=== PATIENT | male | born 1985 | race Caucasian/White ===

== ENCOUNTER 2017-09-16 20:32 | Emergency (ER) | payer OTHER ==
[~2017-09-16] VITALS: Ht 182.9 cm; Wt 77.1 kg
[2017-09-16 20:34] VITALS: BP 149/100
--- NOTE | 2017-09-16 20:44 | NUR ---
PT BIBA TO ER BED 11
--- NOTE | 2017-09-16 20:44 | NUR ---
BIB EMS. PATIENT PRESENTS TO ED WITH RLQ ABD PAIN 10/10 X1 HR. PT STATES NO INJURY AND ONSET OF PAIN WAS UNEXPECTED AND UNKNOWN REASON WHY. PT HAS NAUSEA WITHOUT VOMITNIG. DENIES DIARRHEA; SKIN IS PINK/WARM/DRY; AAOX4 WITH EVEN AND STEADY GAIT; LUNGS CLEAR BL; HR EVEN AND REGULAR; PT DENIES ANY FEVER, CP, SOB, OR COUGH AT THIS TIME; PATIENT STATES PAIN OF 10/10 AT THIS TIME; VSS; PATIENT POSITIONED FOR COMFORT; HOB ELEVATED; BEDRAILS UP X2; BED DOWN. ER MD MADE AWARE OF PT STATUS. CONTINUE TO MONITOR.
[2017-09-16 21:53] LABS: BASOPHILS % (AUTO) 0.2 % (0.0-2.0); EOSINOPHILS % (AUTO) 0.3 % (0.0-4.0); HEMATOCRIT 48.4 % (36-52); LYMPHOCYTES # (AUTO) 1.2 K/uL (2.0-11.5); LYMPHOCYTES % (AUTO) 7.2 % (20.5-51.1); MEAN CORPUSCULAR HEMOGLOBIN 30 pg (27-31); MEAN CORPUSCULAR HGB CONC 33 g/dL (33-37); MEAN CORPUSCULAR VOLUME 91.9 fL (80-94); MONOCYTES # (AUTO) 0.7 K/uL (0.8-1.0); MONOCYTES % (AUTO) 4.3 % (1.7-9.3); PLATELET COUNT (AUTO) 241 K/uL (140-450); RED BLOOD CELL COUNT(AUTO) 5.27 MIL/uL (4.20-6.10); RED CELL DISTRIBUTION WIDTH 13.1 % (11.6-13.7)
--- NOTE | 2017-09-16 22:02 | NUR ---
PERFORMED STRAIGHT CATH. URINE COLLECTED. PT TOLERATED PROCEDURE WELL.
[2017-09-16] MEDS ORDERED: KETOROLAC 60 MG/2 ML VIAL IM ONE (22:05)
[2017-09-16 22:12] LABS: ANION GAP 12.9 (8-16); CARBON DIOXIDE 26.6 mmol/L (21-32); CREATININE 1.2 mg/dL (0.7-1.3); POTASSIUM 3.5 mmol/L (3.5-5.1)
[2017-09-16 22:15] LABS: ALBUMIN 4.3 g/dL (3.4-5.0); TOTAL BILIRUBIN 1.2 mg/dL (0.0-1.0)
--- NOTE | 2017-09-16 22:16 | NUR ---
pt taken to CT
[2017-09-16 22:21] LABS: APPEARANCE,URINE HAZY (CLEAR); BILIRUBIN,URINE NEGATIVE (NEGATIVE); BLOOD, URINE 3+ (NEGATIVE); COLOR,URINE YELLOW (YELLOW); LEUKOCYTE ESTERASE ,URINE NEGATIVE (NEGATIVE); NITRITE, URINE NEGATIVE (NEGATIVE); UGLUCOSE NEGATIVE (NEGATIVE)
--- NOTE | 2017-09-16 22:25 | NUR ---
PT BACK FROM CT VIA BED AAOX4
[2017-09-16 22:37] LABS: WBC,URINE 0-5 (RARE) /HPF (0-5)
[2017-09-16 22:38] LABS: RBC,URINE 50-80 /HPF (0-5)
== END 2017-09-16 23:32 | disposition home or self-care (01) ==
LOC: MED 20:32
DX: R10.9 Unspecified abdominal pain (principal); Z87.442 Personal history of urinary calculi
CPT/HCPCS: 36415; 74176; 80053; 81001; 85025; 93005; 96374; 99285; J1885

== ENCOUNTER 2018-07-26 03:05 | Emergency (ER) | payer OTHER ==
[~2018-07-26] VITALS: Ht 182.9 cm; Wt 81.6 kg
[2018-07-26 03:05] VITALS: BP 155/90
--- NOTE | 2018-07-26 03:09 | NUR ---
PT BIB WHEELCHAIR TO ER BED 8
--- NOTE | 2018-07-26 03:14 | NUR ---
33 YO M BIB SELF PRESENTS TO ED C/O OF RIGHT SIDE MIDDLE BACK PAIN THAT RADIATES DOWN INTO GROIN THAT STARTED 40 MINS AGO. PT IS GROANING, GUARDING AND REPORTS 9/10 SEVERE PAIN. PT STATES HE HAS BEEN TREATED FOR KIDNEY STONES IN THE PAST. PMH-- DENIES RX-- DENIES SKIN IS PINK DRY WARM. PT APPEARS TO BE IN PAIN BUT IS COOPERATIVE. BREATHING EVEN, UNLABORED. PT POSITIONED FOR COMFORT. HOB FLAT, PER PT PREFERENCE. SIDE RAIL UP X1. BED IN LOWEST POSITION.
[2018-07-26] MEDS ORDERED: NACL 0.9% 1,000 ML IV ONE (03:17)
[2018-07-26] MEDS ORDERED: ONDANSETRON 4 MG/2 ML VIAL IVP ONE (03:20)
[2018-07-26] MEDS ORDERED: MORPHINE SULFATE 4 MG/ML SYR IVP ONE (03:20)
[2018-07-26] MEDS ORDERED: KETOROLAC 30 MG/ML VIAL IVP ONE ×2 (03:20→04:35)
[2018-07-26 03:47] LABS: ANION GAP 12.8 (8-16); CARBON DIOXIDE 28.1 mmol/L (21-32); CREATININE 1.2 mg/dL (0.7-1.3); POTASSIUM 3.9 mmol/L (3.5-5.1)
[2018-07-26 03:52] LABS: TOTAL BILIRUBIN 0.7 mg/dL (0.0-1.0)
[2018-07-26 04:05] LABS: BASOPHILS % (AUTO) 0.4 % (0.0-2.0); EOSINOPHILS # (AUTO) 0.1 K/uL (0-0.4); EOSINOPHILS % (AUTO) 0.8 % (0.0-4.0); HEMATOCRIT 44.9 % (36-52); HEMOGLOBIN 15.4 g/dL (12.0-18.0); LYMPHOCYTES # (AUTO) 2.3 K/uL (2.0-11.5); LYMPHOCYTES % (AUTO) 29.5 % (20.5-51.1); MEAN CORPUSCULAR HEMOGLOBIN 31 pg (27-31); MEAN CORPUSCULAR HGB CONC 34 g/dL (33-37); MEAN CORPUSCULAR VOLUME 90.7 fL (80-94); MONOCYTES # (AUTO) 0.6 K/uL (0.8-1.0); MONOCYTES % (AUTO) 8.2 % (1.7-9.3); NEUTROPHILS # (AUTO) 4.8 K/uL (1.8-7.7); NEUTROPHILS % (AUTO) 61.1 % (42.2-75.2); PLATELET COUNT (AUTO) 246 K/uL (140-450); RED BLOOD CELL COUNT(AUTO) 4.94 MIL/uL (4.20-6.10); WHITE BLOOD COUNT (AUTO) 7.8 K/uL (4.8-10.8)
[2018-07-26 04:14] LABS: APPEARANCE,URINE SL CLOUDY (CLEAR); BILIRUBIN,URINE NEGATIVE (NEGATIVE); BLOOD, URINE 3+ (NEGATIVE); COLOR,URINE YELLOW (YELLOW); LEUKOCYTE ESTERASE ,URINE NEGATIVE (NEGATIVE); NITRITE, URINE NEGATIVE (NEGATIVE); UGLUCOSE NEGATIVE (NEGATIVE)
[2018-07-26 04:19] LABS: RBC,URINE TOO NUMEROUS TO COUN /HPF (0-5); WBC,URINE NONE SEEN /HPF (0-5)
[2018-07-26] MEDS ORDERED: HYDROcodone/APAP 5/325 MG 1 TAB TAB PO ONE (04:35)
[2018-07-26 05:17] VITALS: BP 143/97
--- NOTE | 2018-07-26 05:17 | NUR ---
Patient discharged with v/s stable. Written and verbal after care instructions given and explained. Patient alert, oriented and verbalized understanding of instructions. Ambulatory with steady gait. All questions addressed prior to discharge. ID band removed. Patient advised to follow up with PMD. Rx of [place], Naprosyn, Zofran given. Patient educated on indication of medication including possible reaction and side effects. Opportunity to ask questions provided and answered.
== END 2018-07-26 05:17 | disposition home or self-care (01) ==
LOC: MED 03:05
DX: N20.1 Calculus of ureter (principal); Z87.442 Personal history of urinary calculi
CPT/HCPCS: 36415; 80053; 81001; 83690; 85025; 96374; 96375; 96376; 99283; J1885; J2270; J2405; J7030

== ENCOUNTER 2018-11-27 22:58 | Emergency (ER) | payer OTHER ==
[~2018-11-27] VITALS: Ht 182.9 cm; Wt 83.9 kg
[2018-11-27 23:01] VITALS: BP 130/106
--- NOTE | 2018-11-27 23:04 | NUR ---
PT AMBULATED TO BED 9.
--- NOTE | 2018-11-27 23:08 | NUR ---
PT CAME TO ER C/O OF LEFT EYE SWELLING. 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 TODAY PT WOKE UP AND LEFT EYE IS SWOLLEN, RED WITH YELLOW DRAINAGE. PT PAIN LEVEL 5/10, PRESSURE PAIN AND AREA IS TENDER TO TOUCH. NKA. MED HX: KIDNEY STONES. SAFETY MEASURES IN PLACE. WAITING FOR ERMD TO EVALUATE PT.
--- NOTE | 2018-11-27 23:12 | NUR ---
ERMD AT BEDSIDE
--- NOTE | 2018-11-27 23:24 | NUR ---
Patient discharged with v/s stable. Written and verbal after care instructions given and explained. Patient alert, oriented and verbalized understanding of instructions. Ambulatory with steady gait. All questions addressed prior to discharge. ID band removed. Patient advised to follow up with PMD. Rx of MOTRIN AND KEFLEX was given. Patient educated on indication of medication including possible reaction and side effects. Opportunity to ask questions provided and answered.
[2018-11-27 23:25] VITALS: BP 130/106
== END 2018-11-27 23:24 | disposition home or self-care (01) ==
LOC: MED 22:58
DX: L03.213 Periorbital cellulitis (principal); F17.200 Nicotine dependence, unspecified, uncomplicated
CPT/HCPCS: 99283

== ENCOUNTER 2019-03-18 17:45 | Emergency (ER) | payer OTHER ==
[~2019-03-18] VITALS: Ht 182.9 cm; Wt 86.2 kg
[2019-03-18 18:06] VITALS: BP 140/92
--- NOTE | 2019-03-18 18:09 | NUR ---
Patient ambulated to bed 6 with family. RN evaluating patient at bedside.
--- NOTE | 2019-03-18 18:10 | NUR ---
RECIVED PATIENT FROM TRIAGE TO BED 6 WITH C/O LEFT NECK AND SINUS PAIN, COUGHING X8 DAYS W/ BODY ACHE. PENDING ED MD KELLEY
--- NOTE | 2019-03-18 18:20 | NUR ---
CONCEPCIÓN RICHARDS IN ROOM
[2019-03-18] MEDS ORDERED: DEXAMETHASONE 10 MG/ML VIAL PO ONE (18:30)
[2019-03-18] MEDS ORDERED: KETOROLAC 30 MG/ML VIAL IM ONE (18:30)
[2019-03-18 19:20] VITALS: BP 127/84
--- NOTE | 2019-03-18 19:25 | NUR ---
Patient discharged with v/s stable.RX X4 GIVEN WITH Written and verbal after care instructions given and explained.Patient verbalized understanding. Ambulatory with steady gait. All questions addressed prior to discharge. Advised to follow up with PMD.
== END 2019-03-18 19:25 | disposition home or self-care (01) ==
LOC: MED 17:45
DX: J32.9 Chronic sinusitis, unspecified (principal)
CPT/HCPCS: 96372; 99283; J1100; J1885

== ENCOUNTER 2019-05-05 18:46 | Inpatient (IN) | payer OTHER ==
[~2019-05-05] VITALS: Ht 182.9 cm; Wt 81.2 kg
[2019-05-05 19:12] VITALS: BP 145/99
--- NOTE | 2019-05-05 19:16 | NUR ---
WAIT AT LOBBY.
--- NOTE | 2019-05-05 20:11 | NUR ---
pt ambulated to chair A
[2019-05-05] MEDS ORDERED: NACL 0.9% 1,000 ML IV ONE (20:30)
--- NOTE | 2019-05-05 20:53 | NUR ---
PT MOVED TO BED 9
[2019-05-05] MEDS ORDERED: MORPHINE SULFATE 4 MG/ML SYR IVP ONE (21:30)
--- NOTE | 2019-05-05 21:48 | NUR ---
33 Y/O MALE PRESENTS TO ED, C/O ABDOMINAL PAIN THAT STARTED YESTERDAY. PT STATES PAIN IS 10/10, RADIATES TO LOWER BACK. PT C/O NAUSEA AND VOMITING. BS ACTIVE X4 QUADRANTS. PT HAS HX OF KIDNEY STONES. ABDOMEN SOFT AND NONTENDER. PT DENIES CHEST PAIN. PT VSS. ERMD AWARE. WILL CONTINUE TO MONITOR.
[2019-05-05 21:54] LABS: HEMATOCRIT 49.6 % (36-52); HEMOGLOBIN 16.6 g/dL (12.0-18.0); MEAN CORPUSCULAR HEMOGLOBIN 31 pg (27-31); MEAN CORPUSCULAR HGB CONC 33 g/dL (33-37); MEAN CORPUSCULAR VOLUME 93.6 fL (80-94); PLATELET COUNT (AUTO) 262 K/uL (140-450); RED CELL DISTRIBUTION WIDTH 13.7 % (11.6-13.7); WHITE BLOOD COUNT (AUTO) 14.7 K/uL (4.8-10.8)
[2019-05-05 22:28] LABS: APPEARANCE,URINE SL CLOUDY (CLEAR); BILIRUBIN,URINE NEGATIVE (NEGATIVE); BLOOD, URINE TRACE-I (NEGATIVE); COLOR,URINE YELLOW (YELLOW); LEUKOCYTE ESTERASE ,URINE NEGATIVE (NEGATIVE); NITRITE, URINE NEGATIVE (NEGATIVE); UGLUCOSE NEGATIVE (NEGATIVE)
[2019-05-05 22:32] LABS: BARBITURATE, URINE NEG. ng/ml (NEG <=200); BENZODIAZEPINE, URINE NEG. ng/mL (NEG <=200); CANNABINOID, URINE POS. ng/mL (NEG <=50); COCAINE, URINE NEG. ng/mL (NEG <=300); OPIATE, URINE NEG. ng/mL (NEG <=2000); PHENCYCLIDINE SCREEN,URINE NEG. ng/mL (NEG <=25)
[2019-05-05 22:32] LABS: ALBUMIN 3.9 g/dL (3.4-5.0); ANION GAP 13.7 (8-16); CARBON DIOXIDE 29.6 mmol/L (21-32); CREATININE 1.1 mg/dL (0.7-1.3); POTASSIUM 4.3 mmol/L (3.5-5.1); PROTHROMBIN TIME 9.8 secs (10.8-13.4); TOTAL BILIRUBIN 1.5 mg/dL (0.0-1.0)
[2019-05-05 23:04] LABS: LYMPHOCYTES % (MANUAL) 6 % (20-46); MONOCYTES % (MANUAL) 5 % (5-12)
--- NOTE | 2019-05-05 23:12 | NUR ---
PT RESTING IN BED, EYES CLOSED. AROUSABLE TO NAME. DENIES PAIN AT THIS TIME. PT REMAINS ON MONITOR. VSS. WILL CONTINUE TO MONITOR.
[2019-05-05 23:49] LABS: WBC,URINE 0-5 /HPF (0-5)
--- NOTE | 2019-05-06 00:06 | NUR ---
Patient will be admitted to care of DR GALEANA. Admited to [facility]. Will go to room 105B. Belongings list completed. Report to CAESAR FARFAN.
--- NOTE | 2019-05-06 00:16 | NUR ---
RECEIVED PT FROM ER, PT WAS BROUGHT IN BY W/C TO ROOM 105 AND HE AMBULATED TO BED B. PT IS AOX4, WITH SKIN INTACT HE DENIES PAIN AT THIS TIME V/S FOLLOWS: T 97.4 P 108 R 20 B/P 141/102 02 100% ON ROOM AIR. MRSA SWAB DONE.
[2019-05-06 00:30] VITALS: BP 141/102
[2019-05-06] MEDS ORDERED: ACETAMINOPHEN 325 MG TAB PO PRN (00:30)
[2019-05-06] MEDS ORDERED: LORazepam 2 MG/ML VIAL IM/IVP PRN (00:30)
[2019-05-06] MEDS ORDERED: DOCUSATE SODIUM 100 MG GELCAP PO PRN (00:30)
[2019-05-06] MEDS ORDERED: HYDROcodone/APAP 5/325 MG 1 TAB TAB PO PRN (00:30)
[2019-05-06] MEDS ORDERED: ONDANSETRON 4 MG/2 ML VIAL IM/IVP PRN (00:30)
[2019-05-06] MEDS ORDERED: ZOLPIDEM 5 MG TAB PO PRN (00:30)
--- NOTE | 2019-05-06 01:00 | NUR ---
D5N/S HUNG AND RUNNING ORDERED. IV SITE ON LEFT AC INTACT AND ASYMPTOMATIC. UNIVERSAL FALLS PRECAUTIONS IN PLACE.
[2019-05-06 01:37] LABS: MAGNESIUM 2.1 mg/dL (1.8-2.4); PHOSPHORUS 3.4 mg/dL (2.5-4.9); THYROID STIMULATING HORMONE 1.17 uIU/mL (0.34-3.74)
[2019-05-06] MEDS: DEXT 5% /NACL 0.9% 1,000 ML IV SCH ×2 (01:52→13:00)
[2019-05-06] MEDS: MORPHINE SULFATE 2 MG/ML SYR IVP PRN ×3 (01:57→21:17)
--- NOTE | 2019-05-06 02:00 | NUR ---
PT C/O OF SEVERE PAIN IN ABDOMEN 10/17, HE WAS GIVEN IVP MORPHINE. WILL MONITOR PAIN EFFECT.
--- NOTE | 2019-05-06 07:00 | NUR ---
RECEIVED REPORT FROM ENVIRONMENTAL SERVICE AIDE RN. PATIENT IS FULL CODE, NKA. PATIENT AMBULATES, AAOX4, SKIN IS INTACT. LBM 05/05 PRIOR TO ADMISSION. PATIENT HAS A CONSULT WITH DR WOODS. CELESTINA 1ST DOSE WILL BE AT 0900. PATIENT IS CURRENTLY SLEEPING, VISIBLE CHEST RISE AND FALL. WILL REVIEW AND CONTINUE WITH PLAN OF CARE FOR THE DAY.
[2019-05-06 07:28] LABS: CHOL/HDL RATIO 2.3 (1-4.5)
[2019-05-06 08:00] VITALS: BP 135/95
[2019-05-06] MEDS: PANTOPRAZOLE 40 MG INJ VIAL IVP SCH (08:19)
--- NOTE | 2019-05-06 08:24 | NUR ---
ADMINISTERED MORNING MEDICATION. ADMINISTERED MORPHINE FOR PAIN 11/17. WILL RE-ASSESS PAIN LEVEL. PATIENT SIGNED CONSENT FOR LAP APPY. CONSENT PLACED IN HARD CHART.
[2019-05-06] MEDS: LEVOFLOXACIN 750 MG/D5W PREMIX 150 ML IV SCH (08:29)
--- NOTE | 2019-05-06 09:21 | NUR ---
PATIENT HAS BEEN SCREENED AND CATEGORIZED MODERATE NUTRITION RISK. PATIENT WILL BE SEEN WITHIN 3-5 DAYS OF ADMISSION. 05/08/19 05/10/[address]
--- NOTE | 2019-05-06 10:41 | NUR ---
COMPLETED PRE-OP CHECKLIST. INSTRUCTED PATIENT TO TAKE OFF JEANS AND WEAR GOWN ONLY PRIOR TO SURGERY. PATIENT VERBALIZED UNDERSTANDING.
--- NOTE | 2019-05-06 12:00 | NUR ---
PATIENT IS OFF THE FLOOR AND IS GOING TO OR FOR LAP APPY.
[2019-05-06] MEDS: LIDOCAINE 1% 500 MG/50 ML VIAL ONE ×2 (12:23→14:29)
[2019-05-06] MEDS: BUPIVACAINE-MPF/EPI 0.25% 30 ML VIAL INJ ONE ×2 (12:23→14:28)
[2019-05-06] MEDS ORDERED: MIDAZOLAM 2 MG/2 ML VIAL ONE (12:30)
[2019-05-06] MEDS ORDERED: SUCCINYLCHOLINE CHLORIDE 200 MG/10 ML VIAL IVP ONE (12:30)
[2019-05-06] MEDS ORDERED: PROPOFOL 200 MG/20 ML VIAL IV ONE (12:30)
[2019-05-06] MEDS ORDERED: ONDANSETRON 4 MG/2 ML VIAL ONE (12:30)
[2019-05-06] MEDS ORDERED: fentaNYL 0.05 MG/ML VIAL ONE (12:30)
[2019-05-06] MEDS ORDERED: SEVOFLURANE 250 ML BTL INH ONE (12:30)
[2019-05-06] MEDS ORDERED: DEXAMETHASONE 4 MG/ML VIAL ONE (12:30)
[2019-05-06] MEDS ORDERED: ROCURONIUM 50 MG/5 ML VIAL IV ONE (12:30)
[2019-05-06] MEDS: metroNIDAZOLE 500 MG/NS PREMIX 100 ML IV SCH ×2 (13:00→21:09)
[2019-05-06] MEDS ORDERED: MAGNESIUM HYDROXIDE 2400 MG/30 ML UDC PO SCH (14:00)
--- NOTE | 2019-05-06 14:10 | NUR ---
PATIENT IS BACK ON UNIT FROM OR. PATIENT IS RESTING QUIETLY, VISIBLE CHEST RISE AND FALL, NO DISTRESS NOTED. POST OP VITAL SIGNS WNL. WILL MONITOR VS Q15 MIN
--- NOTE | 2019-05-06 15:09 | NUR ---
FAMILY MEMBERS AT BEDSIDE. PATIENT IS DOING WELL. VITAL SIGNS ARE STABLE. NO COMPLAINTS AT THIS TIME.
[2019-05-06 16:00] VITALS: BP 134/99
--- NOTE | 2019-05-06 16:54 | NUR ---
DISCHARGE PLANNING: POST STABILIZATION FORM FAXED TO [facility] [phone].
--- NOTE | 2019-05-06 19:10 | NUR ---
RECEIVED REPORT FROM [facility] RN DAYSHIFT NURSE AT BEDSIDE FOR CONTINUITY OF CARE, PT IN STABLE CONDITION.
--- NOTE | 2019-05-06 20:00 | NUR ---
PT IN BED AOX4 SKIN INTACT EXCEPT FOR 3 SURGICAL WOUNDS ON ABDOMEN. WOUNDS CLOSED WITH DERMABOND, THEY ARE INTACT, CATALYST SUPERVISOR WITH NO SIGN OF DRAINAGE. IV SITE ON LEFT AC INTACT AND ASYMPTOMATIC V/S FOLLOWS: T 98.3 P 109 R 18 B/P 135/90 02 98% ON ROOM AIR. ALL UNIVERSAL FALLS PRECAUTIONS IN PLACE .
--- NOTE | 2019-05-06 20:24 | NUR ---
GAVE REPORT TO KHADRA MAYNARDSECURITY GUARDS DISPATCHER NURSE DUE TO CHANGE OF ASSIGNMENT.
--- NOTE | 2019-05-06 21:00 | NUR ---
RECEIVED REPORT OF PT IN STABLE CONDITION.IVF INFUSING WELL.CALL LIGHT IN REACH.WILL CONTINUE MONITORING.
--- NOTE | 2019-05-06 23:53 | NUR ---
PT WANTED TO DC.TALKED W/DR [place].SHE TALKED TO PT TO STAY ONE NIGHT AFTER SURGERY, PT ACCEPTED.PAIN MED GIVEN EARLIER .HAS NO C/O PAIN NOW.CONDITION STABLE.
[2019-05-07] VITALS: BP 121/80
[2019-05-07] MEDS: metroNIDAZOLE 500 MG/NS PREMIX 100 ML IV SCH (05:05)
[2019-05-07] MEDS: DEXT 5% /NACL 0.9% 1,000 ML IV SCH (05:05)
--- NOTE | 2019-05-07 06:52 | NUR ---
SLEPT WELL.NO C/O AFTER I GAVE PAIN MED AT 2116.IVF IS IN PROGRESS.NO DISTRESS NOTED NOW.POSSIBLE DISCHARGE TODAY.
--- NOTE | 2019-05-07 07:10 | NUR ---
RECEIVED REPORT FROM LONG LINES OPERATOR NURSE. PT IS SLEEPING. NO SIGNS OF DISTRESS. CALL LIGHT WITHIN PT'S REACH, BED ON LOW, SIDERAILS UP. PT HAS IV ON LEFT FOREARM 20G. WILL CONTINUE TO MONITOR
[2019-05-07 07:45] LABS: BASOPHILS % (AUTO) 0.2 % (0.0-2.0); EOSINOPHILS % (AUTO) 0.2 % (0.0-4.0); HEMATOCRIT 41.5 % (36-52); HEMOGLOBIN 13.9 g/dL (12.0-18.0); LYMPHOCYTES # (AUTO) 1.4 K/uL (2.0-11.5); LYMPHOCYTES % (AUTO) 11.3 % (20.5-51.1); MEAN CORPUSCULAR HEMOGLOBIN 31 pg (27-31); MEAN CORPUSCULAR HGB CONC 34 g/dL (33-37); MEAN CORPUSCULAR VOLUME 93.2 fL (80-94); MONOCYTES # (AUTO) 1.1 K/uL (0.8-1.0); MONOCYTES % (AUTO) 8.8 % (1.7-9.3); NEUTROPHILS # (AUTO) 10.1 K/uL (1.8-7.7); NEUTROPHILS % (AUTO) 79.5 % (42.2-75.2); PLATELET COUNT (AUTO) 230 K/uL (140-450); RED BLOOD CELL COUNT(AUTO) 4.46 MIL/uL (4.20-6.10); RED CELL DISTRIBUTION WIDTH 13.4 % (11.6-13.7); WHITE BLOOD COUNT (AUTO) 12.7 K/uL (4.8-10.8)
[2019-05-07 07:46] LABS: ANION GAP 10.8 (8-16); CARBON DIOXIDE 27.1 mmol/L (21-32); POTASSIUM 3.9 mmol/L (3.5-5.1)
[2019-05-07 07:53] LABS: MAGNESIUM 2.1 mg/dL (1.8-2.4); PHOSPHORUS 2.9 mg/dL (2.5-4.9)
[2019-05-07] MEDS: LEVOFLOXACIN 750 MG/D5W PREMIX 150 ML IV SCH (09:03)
--- NOTE | 2019-05-07 09:05 | NUR ---
SCHEDULED MEDS GIVEN. PT IS ALERT AND ORIENTED. PT IS STABLE. CALL LIGHT WITHIN PT'S REACH.WILL CONTINUE TO MONITOR
[2019-05-07] MEDS: PANTOPRAZOLE 40 MG INJ VIAL IVP SCH (09:06)
[2019-05-07] MEDS: MORPHINE SULFATE 2 MG/ML SYR IVP PRN (09:19)
--- NOTE | 2019-05-07 09:19 | NUR ---
PT COMPLAINED OF PAIN 9/10 IN THE STOMACH. MORPHINE IVP GIVEN. WILL CONTINUE TO MONITOR.
--- NOTE | 2019-05-07 11:30 | NUR ---
WINSOME assessment/discharge plan Basic Screen: Yes Name: Maureen Tomas Relationship: mother Pre-Admission Living Arrangements: Lives with Other Other: roommates Prior ADL Independent Current Home Health Name/Tel: N/A Current DME/02 Name/Tel: N/A Current Hospice Name/Tel: N/A Current Dialysis Name/Tel: N/A Healthcare Decision Maker: Patient Advance Directive No Information Taught: Advance Directive Community Resources Person Taught: Patient Teaching Tools: Community Resources Computer Generated Print Verbal Factors Affecting Learning: None Participation Level: Active Evaluation: Gestures Understanding Verbalizes Understanding Educator: WINSOME Lee Discipline: Case Mgt/Social Svcs Tentative Discharge Plan Summary: Patient is a 33 year old male admitted for acute appendicitis. I met with patient at bedside. Patient alert and oriented x4. Patient lives at home with his roommates and plans to return home upon discharge. Patient does not have a pcp at this time. I emphasized to him the importance of following up with a physician post discharge and regularly. He uses the bus for transportation. He denied hx of mental health and alcohol/substance abuse. Nut Steamer and/or Electronic Prepress Technician will follow up as needed. Signature: WINSOME Lee Date: May 07, 2019 I provided patient with education on [employer] [facility] www.[email or web address] for community resources.
[2019-05-07 11:58] VITALS: BP 129/94
[2019-05-07 12:11] VITALS: BP 129/94
--- NOTE | 2019-05-07 12:30 | NUR ---
PT IS DC. PT IS STABLE.
--- NOTE | 2019-05-07 12:30 | NUR ---
PT IS FOR D/C. D/C PAPERWORKS DONE AND PT SIGNED. DC INSTRUCTIONS GIVEN AND PT VERBALIZED UNDERSTANDING. IV REMOVED, CANNULA INTACT. ID BANDS REMOVED. PT SAID HIS FRIEND WILL PICK HIM UP AT 1PM.
== END 2019-05-07 13:00 | disposition home or self-care (01) | DRG 710 ==
LOC: MED 18:46 → MTU 22:12
PROVIDERS: ADMIT General Practice; ATTEND General Practice
PROC: 0DTJ4ZZ Resection of Appendix, Percutaneous Endoscopic Approach (ICD-10-PCS; principal; 2019-05-06 12:00)
DX: A41.9 Sepsis, unspecified organism (principal); K35.30 Acute appendicitis with localized peritonitis, without perforation or gangrene; E80.6 Other disorders of bilirubin metabolism; F17.210 Nicotine dependence, cigarettes, uncomplicated; F12.10 Cannabis abuse, uncomplicated; F15.10 Other stimulant abuse, uncomplicated; Z87.442 Personal history of urinary calculi; Z82.49 Family history of ischemic heart disease and other diseases of the circulatory system; Z71.51 Drug abuse counseling and surveillance of drug abuser
CPT/HCPCS: 36415; 71045; 80048; 80053; 80305; 81001; 83036; 83605; 83690; 83735; 83880; 84100; 84443; 85025; 85610; 85730; 87040; 87081; 88304; 96361; 96374; 99285; C9113; J0330; J1100; J1956; J2001; J2250; J2270; J2405; J2704; J3010; J3490; J7042; Q0092

== ENCOUNTER 2019-05-17 02:03 | Emergency (ER) | payer OTHER ==
[~2019-05-17] VITALS: Ht 182.9 cm; Wt 79.4 kg
[2019-05-17 02:06] VITALS: BP 132/99
--- NOTE | 2019-05-17 02:30 | NUR ---
33 YO M BIB SELF STATING "I HAVEN'T HAD A BOWEL MOVEMENT FOR 17 DAYS". PT HAD APPENDECTOMY ON 05/06/19 HERE AT [facility]. PT STATES HE HASN'T HAD A NORMAL BM SINCE 4 DAYS PRIOR TO HIS SURGERY. DENIES ANY LOOSE STOOL OR DIARRHEA OF ANY KIND. REPORTS 7/10 LOWER ABD PAIN CONSTANT X 3 DAYS THAT ALTERNATES BETWEEN SHARP AND PRESSURE LIKE. PT STATES "I CAN FEEL A BLOCKAGE DOWN THERE". ABD APPEARS FLAT, IS SOFT, TENDER TO TOUCH. HYPOACTIVE BOWEL SOUNDS TO BILATERAL UPPER QUADRANTS, ABSENT BOWEL SOUNDS NOTED TO BILATERAL LOWER QUADRANTS. PT STATES HE SELDOM HAS FLATUALANCE. PT ALSO REPORTS AN ABSCESS TO RIGHT UPPER LEG WITH BODY ACHES. PMH-- KIDNEY STONES
--- NOTE | 2019-05-17 02:57 | NUR ---
PT TAKEN TO XRAY VIA WC.
--- NOTE | 2019-05-17 03:04 | NUR ---
PT RETURNED FROM XRAY.
[2019-05-17] MEDS ORDERED: METOCLOPRAMIDE 10 MG TAB PO ONE (03:10)
--- NOTE | 2019-05-17 03:20 | NUR ---
Pt taken to CT
[2019-05-17] MEDS ORDERED: MAGNESIUM CITRATE 300 ML BTL PO ONE (04:05)
[2019-05-17 04:26] VITALS: BP 128/94
--- NOTE | 2019-05-17 04:26 | NUR ---
Patient discharged with v/s stable. Written and verbal after care instructions given and explained. Patient alert, oriented and verbalized understanding of instructions. Ambulatory with steady gait. All questions addressed prior to discharge. ID band removed. Patient advised to follow up with PMD. Rx of Bactrim DS given. Patient educated on indication of medication including possible reaction and side effects. Opportunity to ask questions provided and answered.
== END 2019-05-17 04:26 | disposition home or self-care (01) ==
LOC: MED 02:06
DX: K59.00 Constipation, unspecified (principal); L02.415 Cutaneous abscess of right lower limb; Z90.49 Acquired absence of other specified parts of digestive tract
CPT/HCPCS: 74018; 74176; 99284; J8597; Q0092

== ENCOUNTER 2019-05-25 01:20 | Emergency (ER) | payer OTHER ==
[~2019-05-25] VITALS: Ht 182.9 cm; Wt 81.6 kg
[2019-05-25 01:30] VITALS: BP 127/90
--- NOTE | 2019-05-25 01:33 | NUR ---
TO LOBBY A/W BED AMBULATORY
--- NOTE | 2019-05-25 02:47 | NUR ---
PT AMBULATED TO ER BED 07
--- NOTE | 2019-05-25 02:50 | NUR ---
PT AMBULATED TO BED #7
--- NOTE | 2019-05-25 03:00 | NUR ---
PT 33 Y/O MALE BIB SELF FOR C/O CONSITPATION X 3 WEEKS S/P APENDECTOMY. PT AAO X 4. RESPIRATIONS ARE EVEN AND UNALBORED SKIN IS WARM AND DRY TO TOUCH. PT ABD IS FLAT, TENDER TO TOUCH, AND FIRM. BS PRESENT X 4. PT STATED, "I HAVEN'T BEEN ABLE TO GO TO THE BATHROOM IN 3 WEEKS SINCE MY SURGERY. PT ADMITS TO NAUSEA BUT HAS NOT HAD AN EPISODE OF VOMITTING. PAIN IS 8/10 IN LLQ, AND RLQ. PT STATES HE TAKES NORCO FOR PAIN PRN AFTER SURGERY. MEDHX: APENDECTOMY X 3 WEEKS AGO. ALLERGIES: NKA
--- NOTE | 2019-05-25 03:33 | NUR ---
XRAY AT BEDSIDE.
[2019-05-25] MEDS ORDERED: MAGNESIUM CITRATE 300 ML BTL PO ONE (05:20)
--- NOTE | 2019-05-25 05:39 | NUR ---
PT TAKEN TO CT VIA W/C PT ABLE TO AMBULATE TO W/C WITH STEADY GAIT.
--- NOTE | 2019-05-25 05:57 | NUR ---
PT RETURNED FROM FROM CT VIA W/C PT AMBULATED FROM W/C TO BED WITH STEADY GAIT.
--- NOTE | 2019-05-25 07:10 | NUR ---
GAVE REPORT TO YOLADNE MAYNARD.
[2019-05-25 07:13] LABS: BASOPHILS % (AUTO) 0.4 % (0.0-2.0); EOSINOPHILS # (AUTO) 0.1 K/uL (0-0.4); HEMATOCRIT 45.2 % (36-52); HEMOGLOBIN 15.2 g/dL (12.0-18.0); LYMPHOCYTES # (AUTO) 2.2 K/uL (2.0-11.5); LYMPHOCYTES % (AUTO) 26.7 % (20.5-51.1); MEAN CORPUSCULAR HEMOGLOBIN 31 pg (27-31); MEAN CORPUSCULAR HGB CONC 34 g/dL (33-37); MEAN CORPUSCULAR VOLUME 91.2 fL (80-94); MONOCYTES # (AUTO) 0.8 K/uL (0.8-1.0); MONOCYTES % (AUTO) 9.3 % (1.7-9.3); NEUTROPHILS # (AUTO) 5.1 K/uL (1.8-7.7); NEUTROPHILS % (AUTO) 62.6 % (42.2-75.2); PLATELET COUNT (AUTO) 414 K/uL (140-450); RED BLOOD CELL COUNT(AUTO) 4.95 MIL/uL (4.20-6.10); RED CELL DISTRIBUTION WIDTH 13.6 % (11.6-13.7); WHITE BLOOD COUNT (AUTO) 8.1 K/uL (4.8-10.8)
--- NOTE | 2019-05-25 07:19 | NUR ---
RECVD REPORT FROM CAESAR MCDANIEL AND [facility].
[2019-05-25 07:29] LABS: ALBUMIN 3.7 g/dL (3.4-5.0); ANION GAP 11.9 (8-16); CARBON DIOXIDE 30.7 mmol/L (21-32); CREATININE 1.3 mg/dL (0.6-1.3); POTASSIUM 4.6 mmol/L (3.5-5.1); TOTAL BILIRUBIN 0.7 mg/dL (0.0-1.0)
[2019-05-25 09:08] VITALS: BP 120/86
--- NOTE | 2019-05-25 09:08 | NUR ---
Patient discharged with v/s stable. Written and verbal after care instructions given and explained. Patient alert, oriented and verbalized understanding of instructions. Ambulatory with steady gait. All questions addressed prior to discharge. ID band removed. Patient advised to follow up with PMD. Rx of MINERAL OIL AND MIRLAX given. Patient educated on indication of medication including possible reaction and side effects. Opportunity to ask questions provided and answered.
== END 2019-05-25 09:08 | disposition home or self-care (01) ==
LOC: MED 01:20
DX: K59.00 Constipation, unspecified (principal); R03.0 Elevated blood-pressure reading, without diagnosis of hypertension; Z90.49 Acquired absence of other specified parts of digestive tract
CPT/HCPCS: 36415; 74018; 74176; 80053; 85025; 99285; Q0092

== ENCOUNTER 2019-07-19 11:21 | Emergency (ER) | payer OTHER ==
[~2019-07-19] VITALS: Ht 182.9 cm; Wt 81.6 kg
[2019-07-19 11:21] VITALS: BP 141/114
--- NOTE | 2019-07-19 11:21 | NUR ---
Pt with negative screen for covid-19, mask placed on pt Appropriate PPE worn during encounter
--- NOTE | 2019-07-19 11:21 | NUR ---
BIBA TAKEN TO BED 7
--- NOTE | 2019-07-19 11:33 | NUR ---
34M BIBA ALS C/O rectal pain [id number]. recurrent constipation/fecal impaction, reports LBM 2 weeks ago. denies fever/chills, cough/congestion, abd pain, n/v/d. hx appendectomy 2 months ago. reports taking mag citrate x 30 mins. Mask placed on pt Appropriate PPE worn during encounter by staff
--- NOTE | 2019-07-19 11:41 | NUR ---
DR SAVAGE AT BEDSIDE EVALUATING PT.
[2019-07-19] MEDS ORDERED: KETOROLAC 30 MG/ML VIAL IVP ONE (11:50)
--- NOTE | 2019-07-19 11:58 | NUR ---
pt medicated with toradol to help with pain.
--- NOTE | 2019-07-19 12:24 | NUR ---
pt states lessening pain from 9/10 to 5/10 and tolerable. nadr.
--- NOTE | 2019-07-19 12:31 | NUR ---
Patient discharged with v/s stable. Written and verbal after care instructions given and explained. Patient alert, oriented and verbalized understanding of instructions. Ambulatory with steady gait. All questions addressed prior to discharge. ID band removed. Patient advised to follow up with PMD. Rx of colace, miralax, lidocaine viscous solution, glycerin given. Patient educated on indication of medication including possible reaction and side effects. Opportunity to ask questions provided and answered.
--- NOTE | 2019-07-19 12:32 | NUR ---
pt states that his ride is 5 minutes away and will be bringing him clothes.
== END 2019-07-19 12:31 | disposition home or self-care (01) ==
LOC: MED 11:21
DX: K59.00 Constipation, unspecified (principal); F17.200 Nicotine dependence, unspecified, uncomplicated; F12.90 Cannabis use, unspecified, uncomplicated; F15.90 Other stimulant use, unspecified, uncomplicated; Z90.49 Acquired absence of other specified parts of digestive tract
CPT/HCPCS: 96374; 99283; J1885

== ENCOUNTER 2023-11-17 07:09 | Emergency (ER) | payer OTHER ==
[~2023-11-17] VITALS: Ht 172.7 cm; Wt 65.8 kg
[2023-11-17 07:13] VITALS: BP 145/107; PULSE 106; RESP 14; TEMP 97.7; O2SAT 99
[2023-11-17] MEDS: BACITRACIN OINT 500 UNITS/GM PKT TP ONE (08:13)
[2023-11-17 08:29] VITALS: BP 145/107; PULSE 106; RESP 14; TEMP 97.7; O2SAT 99
== END 2023-11-17 08:28 | disposition home or self-care (01) ==
LOC: MED 07:09
DX: S51.812A Laceration without foreign body of left forearm, initial encounter (principal); W26.8XXA Contact with other sharp object(s), not elsewhere classified, initial encounter; Y93.89 Activity, other specified; Y92.89 Other specified places as the place of occurrence of the external cause; Y99.8 Other external cause status
CPT/HCPCS: 12001; 99282